=== PATIENT | male | born 1965 | race Caucasian/White ===

== ENCOUNTER 2023-05-06 08:55 | Day surgery (SDC) | payer BC ==
[2023-05-06] MEDS ORDERED: Ringers Lactate 1,000 ML IV ONE (09:51)
[2023-05-06 10:51] LABS: Potassium 3.3 mEq/L (3.5-5.1)
[2023-05-06] MEDS ORDERED: propofoL 200 MG/20 ML VIAL IV ONE (11:25)
[2023-05-06] MEDS ORDERED: ROCURONIUM 50 MG/5 ML VIAL IV ONE (11:26)
[2023-05-06] MEDS ORDERED: LIDOCAINE 2% MPF 5 ML VIAL ONE (11:26)
[2023-05-06] MEDS ORDERED: ONDANSETRON 4 MG/2 ML VIAL ONE (11:26)
[2023-05-06] MEDS ORDERED: dexAMETHasone 10 MG/ML VIAL ONE (11:26)
[2023-05-06] MEDS ORDERED: FENTANYL CITR 100 MCG/2 ML ONE (11:26)
[2023-05-06] MEDS ORDERED: KETOROLAC 30 MG/ML INJ ONE (11:26)
[2023-05-06] MEDS ORDERED: MIDAZOLAM HCL 2 MG/2 ML INJ ONE (11:26)
[2023-05-06] MEDS ORDERED: LIDOCAINE 1% MPF 5 ML VIAL ONE (11:28)
[2023-05-06] MEDS ORDERED: OXYMETAZOLINE HCL 0.05% 15ML NAS ONE (11:38)
[2023-05-06] MEDS ORDERED: LIDOCAINE HCL/EPINEPHRINE 20 ML MDV ONE (11:39)
[2023-05-06] MEDS ORDERED: BUPIVACAINE 0.5% PF 10 ML VIAL ONE (12:30)
[2023-05-06] MEDS ORDERED: GLYCOPYRROLATE 0.2 MG/ML SYR ONE ×2 (13:03→13:07)
[2023-05-06] MEDS ORDERED: CEFAZOLIN SODIUM 1 GM/VIAL ONE (13:07)
[2023-05-06] MEDS ORDERED: EPHEDRINE SULF 50 MG/ML VIAL ONE (13:10)
[2023-05-06] MEDS ORDERED: Mastisol Adhesive Liq ONE (13:28)
--- NOTE | 2023-05-06 14:04 | P.OP ---
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 The head of bed was turned to the right and the right oriental orthodox was palpated. The temporal pulse was noted in regards to its location. The surrounding tissues were injected with 1% lidocaine with epinephrine. The skin was prepped with Betadine and draped in a sterile fashion. A 2-1/2 cm incision was made through the skin and subcutaneous tissue overlying the area of palpable pulse. The soft tissues were carefully dissected revealing a portion of the temporal artery. The Bovie electrocautery and blunt dissection was used to elevate the tissues exposing approximately 2-1/2 cm of the artery. The artery was carefully skeletonized and clamped at the inferior and superior aspect of the surgical field. The specimen between the clamps was then excised and passed off for pathology evaluation. The cut ends of the artery were tied with 3-0 silk. A small area of bleeding from the feeding vessel was cauterized. The area was reinspected and appeared hemostatic. The incision was then closed in a layered fashion using 4-0 Vicryl deep sutures with 5-0 fast-absorbing gut running sutures on the skin. After closure, the skin was cleaned and dried. Mastisol and Steri-Strips were applied to the incision and this portion of the procedure was concluded The 0 degree endoscope was used to perform a nasal endoscopy. The mucosa was generally inflamed and edematous but the right side demonstrated ulceration of the mucosa and cartilage anteriorly. With gentle palpation on the left side, there was no visualized total perforation. A Blakesley forcep was used to carefully elevate and remove several portions of the base of the wound and adjacent mucosa posteriorly. The specimens were divided with some sent to pathology and the remainder sent to microbiology to include aerobic, AFB and fungal cultures. The area of the biopsy was noted to have moderate bleeding and the nose was packed with Afrin-soaked pledgets with direct pressure applied externally for approximately 5 minutes. After removal the biopsy site was reinspected and appeared to be hemostatic. The right nasal cavity was packed with Posisep resorbable hemostatic nasal dressing which was then thoroughly saturated with saline. The oropharynx was examined. Exam under anesthesia including direct palpation of the base of tongue and the right tonsillar fossa revealed no abnormality. No additional procedure was required. Patient was returned to care of anesthesia for awakening extubation in the operating room which proceeded without difficulty Implants: Posisep right nasal cavity Fluids & blood products: Crystalloid, see anesthesia record Transferred to: Recovery Room Condition: Good
[2023-05-06 15:08] VITALS: BP 155/81; TEMP 97.6; O2SAT 94
--- NOTE | 2023-05-11 17:10 | EKG ---
Test Date: 2023-05-06 Test Time: 10:18:58 Bale Opener: MARY MEASUREMENT RESULTS: Intervals: Rate: 60 MO: 130 QRSD: 96 QT: 424 QTc: 424 Ulmer: P: 47 MO: 130 QRS: 17 T: 6 INTERPRETIVE STATEMENTS: Normal sinus rhythm Normal ECG No previous ECG available for comparison Electronically Signed On 05-11-23 16:56:16 FLIGHT MECHANIC by Oleksandr Wisdom
== END 2023-05-06 15:04 | disposition home or self-care (01) ==
LOC: OR 08:55
PROVIDERS: ATTEND Otolaryngology
PROC: 03BS0ZX Excision of Right Temporal Artery, Open Approach, Diagnostic (ICD-10-PCS; principal; 2023-05-06 10:30)
PROC: 09JK8ZZ Inspection of Nasal Mucosa and Soft Tissue, Via Natural or Artificial Opening Endoscopic (ICD-10-PCS; 2023-05-06 10:30)
DX: H92.01 Otalgia, right ear (principal); J34.81 Nasal mucositis (ulcerative); I70.8 Atherosclerosis of other arteries; E66.3 Overweight; Z68.41 Body mass index [BMI] 40.0-44.9, adult
CPT/HCPCS: 93005; 87070; 80048; 36415; 87205; 88304; 88305; 87077; 87186; 87176; 87015; 87206; 87116; 87102; 37609; 31237; J2704; J2001; J2250; J3010; J1100; J2405; J7120; J0690